=== PATIENT | female | born 1995 | race Caucasian/White ===

== ENCOUNTER 2023-11-27 07:46 | Outpatient (CLI) | payer OTHER, SELFPAY ==
[2023-12-11 13:11] VITALS: BMI 35.4
--- NOTE | 2023-12-11 13:11 | WPDHOMESLEEP ---
Sleep Study - Home Unattended Date of Study: 11/27/23 Ordering Provider: Dashawn Ziegler, ELECTRIC KNIFE OPERATOR Interpreting Provider: Cecilia Corey, DO Home Sleep Study Type: Watch PAT Height: 1.6 m Weight: 90.718 kg Body Mass Index: 35.4 Neck Circumference (inches): 15.5 [place]: 0 Reason for Sleep Study Snoring, excessive daytime sleepiness Sleep History The patient is a 28 year old female that had a sleep study ordered by her ENT for evaluation of sleep apnea. The patient admits to loud snoring and excessive daytime sleepiness. The patient admits to stopping breathing during her sleep. She denies choking gasping while sleeping. She denies having trouble breathing on her back. She does admit to waking up with headaches in the morning. She does admit to having a dry or sore mouth or throat in the morning. She denies nocturnal heartburn. She denies nocturia. She denies having difficulty falling or staying asleep. She denies having difficulty returning to sleep if she wakes up during the night. She denies taking any hypnotics her sedatives to help her sleep. She denies having anxiety about sleep. She denies clenching or grinding her teeth. She denies kicking or jerking her legs excessively during the night. She denies having a restless feeling in her legs. She goes to bed at 11:00 p.m. on both weekdays and weekends. It takes her 4 hours to fall asleep. She typically gets 8 hours of sleep on work days and 7 hours of sleep on the weekends. She states that her sleep is not restorative. She does take planned naps in afternoon that are 1-2 hours long. The naps are not refreshing. She denies consuming any caffeinated beverages throughout the day. She denies tobacco and alcohol use. She denies exercising on a regular basis. Sleep Procedure The sleep study was completed using WatchPAT a technically adequate device with seven channels: peripheral arterial tone, actigraphy, body position, snore, respiratory movement, pulse oximetry, sleep staging, and heart rate. Prior to using the device, the patient received verbal and written instructions for its application and was provided with the [employer] phone number for additional telephonic instruction with 24-hour availability of qualified personnel to answer questions. The study was scored using CMS guidelines. Sleep Architecture The total recording time is 7 hrs, 21 min. The total sleep time is 5 hrs, 42 min. Sleep latency is 22 minutes. REM latency is 128 minutes. The patient had 16 episodes of waking. Sleep architecture shows 7.6% deep sleep, 66.2% light sleep, and (as % Total Sleep Time) showed NREM (Light 66.2%; Deep 7.6%), and a 26.2% stage REM. The patient spent 91.2% of total sleep time in the supine position. Sleep efficiency was 77.55. Respiratory Analysis The overall AHI (pAHI 4%:) is 19.9. The central AHI is 4.8. The AHI was 17.8 in NREM and 25.6 in REM sleep. The AHI was 20.6 in Supine and 12.0 in Non-supine sleep. Percent of Lionel Rachel respirations is 0.0. Oximetry Data The oxygen desaturation index (AARON 4%:) is 19.7. The mean saturation is 95%, and the lowest saturation is 84%. Time spent with saturation < 88% is 0.5 minutes. Snoring Profile Snoring average intensity is 43 dB. The patient snored above 45 decibels for 68.3 minutes, 20.0% of sleep time. Cardiac Profile The average pulse rate is 78 beats per minutes. The lowest pulse rate is 53 bpm. The highest pulse rate reported is 110 bpm. Atrial fibrillation was not detected. Premature beats occur <0.1 per minute. Assessment and Plan Assessment and Plan (1) GILMA (obstructive sleep apnea): Code(s): G47.33 - Obstructive sleep apnea (adult) (pediatric) Status: Acute Assessment and Plan: The patient had an overall AHI of 19.9 with desaturation down to 84%. This is consistent with moderate sleep apnea. The patient had a central apnea index of 4.8 resulting from 27 central apneas. While the patient's central apnea i
== END 2023-11-28 14:41 | disposition home or self-care (01) ==
LOC: ANHCSM 07:48
PROVIDERS: Visit Provider Nurse Practitioner Family
DX: G47.33 Obstructive sleep apnea (adult) (pediatric) (principal)
CPT/HCPCS: 95800